=== PATIENT | male | born 1950 | race Caucasian/White ===

== ENCOUNTER 2025-05-15 08:10 | Day surgery (SDC) | payer MEDICARE, OTHER, SELFPAY ==
[2025-05-15] MEDS: ELIQUIS 5 MG PO (09:30)
[2025-05-15 09:48] VITALS: BMI 34.4
--- NOTE | 2025-05-16 11:56 | ITS.CL.CARDI ---
[facility] - Cardioversion
Cardioversion
Procedure Report:
Date of Procedure: 05/15/25
Procedure: Cardioversion
Indication: Symptomatic atrial fibrillation
Performing Physician: Ana Neil DO [facility]
Anticoagulation: Eliquis
Preprocedure transesophageal echocardiogram due to Eliquis interruption less than 21 days from procedure: Left atrial appendage status post clipping with no flow detected
Technique: The patient was brought to the holding area. Signed informed consent was obtained. A time out was called and performed. The patient was anesthetized by the anesthesia service. Transesophageal echocardiogram performed without
complications; left atrial appendage status post clipping with no flow detected by color-flow Doppler. R2 pads were placed anteriorly and posteriorly. A 200 followed by 300 J synchronized biphasic shock were unsuccessful. Third attempt at 360 J
with water bottle assist restored normal sinus rhythm without significant bradycardia. There were no complications.
Conclusion: Uncomplicated cardioversion from atrial fibrillation to sinus rhythm.
Recommendation: Routine post cardioversion care. Continue [facility] anticoagulation.
== END 2025-05-15 11:30 | disposition home or self-care (01) ==
LOC: CATH 08:10
PROVIDERS: ATTENDING PHYSICIAN Internal Medicine Cardiovascular Disease; FAMILY PHYSICIAN Internal Medicine; OTHER PHYSICIAN Internal Medicine Cardiovascular Disease
DX: I48.91 Unspecified atrial fibrillation (principal); Z79.01 Long term (current) use of anticoagulants; I44.0 Atrioventricular block, first degree; I08.1 Rheumatic disorders of both mitral and tricuspid valves; I49.8 Other specified cardiac arrhythmias
CPT/HCPCS: 93312; 93320; 93325; 92960; 93005

== ENCOUNTER → 2025-06-01 15:56 | Outpatient (REF) | payer MEDICARE, OTHER, SELFPAY | LOC: RCS 15:56 | PROVIDERS: ATTENDING PHYSICIAN Internal Medicine Cardiovascular Disease; FAMILY PHYSICIAN Internal Medicine | DX: I48.0 Paroxysmal atrial fibrillation (principal) | CPT/HCPCS: 93306 ==

== ENCOUNTER → 2025-07-16 13:36 | Outpatient (REF) | payer MEDICARE, OTHER, SELFPAY | LOC: DHSLP 13:36 | PROVIDERS: ATTENDING PHYSICIAN Nurse Practitioner; FAMILY PHYSICIAN Internal Medicine | DX: G47.33 Obstructive sleep apnea (adult) (pediatric) (principal) | CPT/HCPCS: 95800 ==